=== PATIENT | female | born 1960 | race Two or more races ===

== ENCOUNTER 2016-07-11 03:17 | Emergency (ER) | payer MEDICAID, OTHER ==
[~2016-07-11] VITALS: Ht 152.4 cm; Wt 68.0 kg
[2016-07-11 04:08] LABS: Basophils # (auto) 0 uL; Basophils % (auto) 0.4 % (0.0-2.0); DEFINITIVE VIEW TRANSMISSION; Eosinophils # (auto) 0.1 uL; Hematocrit 35.4 % (36.0-46.0); Lymphocytes % (auto) 24.3 % (10.0-50.0); Mean Corpuscular Hemoglobin 26.9 pg (28.0-32.0); Mean Corpuscular Hgb Conc. 31.2 g/dL (32.0-36.0); Mean Corpuscular Volume 86.1 fL (80.0-100.0); Mean Platelet Volume 8.1 fL (7.4-10.4); Monocytes # (auto) 0.7 uL; Monocytes % (auto) 8.4 % (0.0-12.0); Neutrophils # (auto) 5.4 uL; Neutrophils % (auto) 65.9 % (37.0-80.0); Platelet Count (auto) 294 10^3/uL (140-450); Red Cell Distribution Width 13.1 % (11.6-16.0); White Blood Cell 8.2 10^3/uL (4.4-10.8)
[2016-07-11 04:36] LABS: Albumin 3.3 g/dL (3.4-5.0); Anion Gap 6 (5-15); Aspartate Aminotransferase 18 U/L (15-37); BUN/Creatinine Ratio 30.8; Blood Urea Nitrogen 24 mg/dL (7-18); Calcium 8.4 mg/dL (8.5-10.1); Carbon Dioxide 27 mmol/L (21-32); Chloride 107 mmol/L (98-107); GFR African American 98 mL/min; GFR Non-African American 81 mL/min; Glucose 166 mg/dL (74-106); Potassium 3.7 mmol/L (3.5-5.1); Sodium 140 mmol/L (136-145)
[2016-07-11 04:41] LABS: Alkaline Phosphatase 100 U/L (45-117); Bilirubin, Total 0.2 mg/dL (0.2-1.0); Total Protein 7.9 g/dL (6.4-8.2)
[2016-07-11 07:01] VITALS: BP 146/69
[2016-07-11 08:24] LABS: Urine Bilirubin Negative (Negative); Urine Blood Negative /uL (Negative); Urine Color Yellow (Yellow); Urine Ketone Negative (Negative); Urine Nitrite Negative (Negative); Urine RBC 2 /hpf (0 - 4); Urine Squamous Epithelial Cell FEW /hpf (<5); Urine Urobilinogen Normal (Negative); Urine pH 5.5 (5.0-8.0)
[2016-07-11 08:34] LABS: Urine Glucose 3+ mg/dL (Normal)
== END 2016-07-11 08:14 | disposition home or self-care (01) ==
LOC: ER 03:17 → EDBD 03:17 → ER 08:14
DX: E11.9 Type 2 diabetes mellitus without complications (principal); Z79.4 Long term (current) use of insulin
CPT/HCPCS: 36415; 80053; 81001; 82962; 84484; 85025; 93005

== ENCOUNTER → 2016-08-21 | Outpatient (CLI) | payer MEDICAID ==
[~2016-08-21] VITALS: Ht 157.5 cm; Wt 76.2 kg
[~2016-08-21] MED LIST: ADENOSINE IV ONE; GIVE UN DILUTED IV ONE
== END ==
LOC: HDHVI->DVH 14:17
PROVIDERS: ATTEND Internal Medicine Cardiovascular Disease
DX: I10 Essential (primary) hypertension (principal); I25.2 Old myocardial infarction; I25.10 Atherosclerotic heart disease of native coronary artery without angina pectoris; E78.00 Pure hypercholesterolemia, unspecified; E00.9 Congenital iodine-deficiency syndrome, unspecified; R07.9 Chest pain, unspecified
CPT/HCPCS: 78452; 93005; 93306; 96374; 96375; A9500; J0153

== ENCOUNTER → 2017-10-23 | Outpatient (CLI) | payer MEDICAID | END | disposition home or self-care (01) | LOC: Rad HDHVI 13:12 | PROVIDERS: ATTEND Internal Medicine Cardiovascular Disease | DX: I10 Essential (primary) hypertension (principal); E78.5 Hyperlipidemia, unspecified; R07.89 Other chest pain | CPT/HCPCS: 93306 ==

== ENCOUNTER → 2017-11-05 | Outpatient (CLI) | payer MEDICAID ==
[~2017-11-05] VITALS: Ht 154.9 cm; Wt 73.0 kg
[~2017-11-05] MED LIST changes: +ADENOSINE 61 MG in GIVE UN-DILUTED 0 ML IV ONE; +ADENOSINE 90 MG/30 ML INJ IV ONE; -ADENOSINE IV ONE; -GIVE UN DILUTED IV ONE
== END | disposition home or self-care (01) ==
LOC: Rad HDHVI 08:43
PROVIDERS: ATTEND Internal Medicine
DX: E11.9 Type 2 diabetes mellitus without complications (principal); E78.5 Hyperlipidemia, unspecified; I10 Essential (primary) hypertension; R63.8 Other symptoms and signs concerning food and fluid intake; R07.89 Other chest pain
CPT/HCPCS: 78452; 93005; 96374; 96375; A9500; J0153

== ENCOUNTER 2022-04-15 07:34 | Emergency (ER) | payer MEDICAID ==
[~2022-04-15] VITALS: Ht 154.9 cm; Wt 66.9 kg
[2022-04-15] MEDS ORDERED: ONDA-144 PO (09:40)
[2022-04-15] MEDS ORDERED: HYDR-4902 PO (09:40)
[2022-04-15 09:43] VITALS: BP 111/71
== END 2022-04-15 09:48 | disposition home or self-care (01) ==
LOC: ER 07:34
DX: R07.81 Pleurodynia (principal); E11.9 Type 2 diabetes mellitus without complications; E78.5 Hyperlipidemia, unspecified; I10 Essential (primary) hypertension; I25.2 Old myocardial infarction; Z90.49 Acquired absence of other specified parts of digestive tract
CPT/HCPCS: 71101

== ENCOUNTER 2023-02-09 09:29 | Emergency (ER) | payer MEDICARE, MEDICAID ==
[~2023-02-09] VITALS: Ht 152.4 cm; Wt 68.4 kg
[~2023-02-09 09:29] MED LIST changes: +ACET-1080 PO; -ADENOSINE 61 MG in GIVE UN-DILUTED 0 ML IV ONE; -ADENOSINE 90 MG/30 ML INJ IV ONE; +HYDR-4902 PO; +ONDA-144 PO
[2023-02-09 11:00] VITALS: BP 162/72; PULSE 89; RESP 24; TEMP 98.1; O2SAT 100
[2023-02-09] MEDS ORDERED: HYDROcodone-ACET 5/325MG TAB PO ONE (12:00)
== END 2023-02-09 12:36 | disposition home or self-care (01) ==
LOC: ER 09:29 → EDUNIT# 09:29 → EDBD 09:29 → ER 12:35
DX: R07.89 Other chest pain (principal); V89.2XXA Person injured in unspecified motor-vehicle accident, traffic, initial encounter; Y93.89 Activity, other specified; Y92.89 Other specified places as the place of occurrence of the external cause; Y99.8 Other external cause status
CPT/HCPCS: 71045; 93005

== ENCOUNTER 2023-02-26 15:11 | Inpatient (IN) | payer MEDICARE, MEDICAID ==
[~2023-02-26] VITALS: Ht 154.9 cm; Wt 66.7 kg
[2023-02-26 16:19] LABS: Basophils # (auto) 0.1 10 ^3/uL (0-0.2); Basophils % (auto) 0.8 % (0.0-2.0); Eosinophils # (auto) 0.1 10 ^3/uL (0-0.8); Eosinophils % (auto) 1.3 % (0.0-7.0); Hematocrit 33.2 % (36.0-46.0); Lymphocytes # (auto) 2.1 10 ^3/uL (0.4-5.4); Mean Corpuscular Hemoglobin 29.5 pg (28.0-32.0); Mean Corpuscular Hgb Conc. 33.3 g/dL (32.0-36.0); Mean Corpuscular Volume 88.7 fL (80.0-100.0); Monocytes # (auto) 0.5 10 ^3/uL (0-1.3); Neutrophils # (auto) 3.9 10 ^3/uL (1.6-8.6); Neutrophils % (auto) 58.9 % (37.0-80.0); Nucleated Red Blood Cells % 0.1 %; Red Blood Cells 3.74 10^6/uL (4.0-5.20); Red Cell Distribution Width 12.9 % (11.8-14.3); White Blood Cell 6.6 10^3/uL (4.4-10.8)
[2023-02-26 16:23] LABS: Alanine Aminotransferase 11 U/L (7-40); Albumin 4.2 g/dL (3.2-4.8); Alkaline Phosphatase 132 U/L (46-116); Anion Gap 6 (5-15); Aspartate Aminotransferase 14 U/L (13-40); BUN/Creatinine Ratio 18.5 (10.0-20.0); Blood Urea Nitrogen 38 mg/dL (9-23); Carbon Dioxide 23 mmol/L (20-30); Chloride 105 mmol/L (98-107); Glucose 359 mg/dL (74-106); Potassium 4.8 mmol/L (3.5-5.1); Sodium 134 mmol/L (136-145)
[2023-02-26 16:24] LABS: Bilirubin, Total 0.2 mg/dL (0.2-1.0); Total Protein 6.9 g/dL (5.7-8.2)
[2023-02-26] MEDS ORDERED: MORPHINE SULFATE INJ 2 MG/ml SYRG IV PRN ×2 (19:30)
[2023-02-26] MEDS ORDERED: DEXTROSE (50%) 50ML SYRG IV PRN (19:30)
[2023-02-26] MEDS ORDERED: NITROGLYCERIN 0.4 MG SL TAB SL PRN (19:30)
[2023-02-26] MEDS ORDERED: DOCUSATE SOD 100 MG CAP PO PRN (19:30)
[2023-02-26] MEDS ORDERED: HYDROcodone-ACET 5/325MG TAB PO PRN (19:30)
[2023-02-26 19:50] VITALS: O2SAT 97
[2023-02-26] MEDS ORDERED: RANO500T3 PO (19:54)
[2023-02-26] MEDS ORDERED: FERR325T20 PO (19:54)
[2023-02-26] MEDS ORDERED: EMPA1TAB PO (19:54)
[2023-02-26] MEDS ORDERED: ATOR40TA52 PO (19:54)
[2023-02-26] MEDS ORDERED: CLOP75TA70 PO (19:54)
[2023-02-26] MEDS: SODIUM CHLORIDE 0.9% 1,000 ML IV SCH (20:16)
[2023-02-26] MEDS: ACETAMINOPHEN 325 MG TAB PO PRN (20:16)
[2023-02-26 20:56] LABS: Creatinine, Urine 77.81 mg/dL (30.0-125.0)
[2023-02-26 20:57] LABS: Urine Bacteria NONE SEEN /hpf (None Seen); Urine Blood Negative /uL (Negative); Urine Clarity Clear (Clear); Urine Color Colorless (Yellow); Urine Protein, UAD Negative (Negative); Urine Urobilinogen Normal (Negative); Urine WBC 1 /hpf (0 - 5)
[2023-02-26] MEDS ORDERED: hydrALAZINE HCL 20 MG/ML VL IV PRN (21:00)
[2023-02-26 21:19] LABS: Magnesium 2.1 mg/dL (1.6-2.6)
[2023-02-26] MEDS: ATORVASTATIN 20 MG TAB PO SCH (21:35)
[2023-02-26] MEDS: RANOLAZINE ER 500 MG TAB PO SCH (21:35)
[2023-02-26] MEDS: ACCU-CHEK COMFORT CURVE STRIP VI SCH (22:12)
[2023-02-26] MEDS: InsuLIN REG 1unit/0.01ml Soln (100units/ml) SC SCH (22:15)
[2023-02-26 23:39] VITALS: BP 159/64; PULSE 60; RESP 16; TEMP 97.6; O2SAT 96
[2023-02-27] VITALS (8 sets, daily range): BP systolic 124–139; BP diastolic 48–63; PULSE 58–69; RESP 18–22; TEMP 97.8–98.4; O2SAT 98–100
[2023-02-27] MEDS ORDERED: ATOR20TA50 PO (02:09)
[2023-02-27] MEDS ORDERED: CHOL20007 PO (02:19)
[2023-02-27] MEDS ORDERED: METF-372 PO (02:19)
[2023-02-27] MEDS: SODIUM CHLORIDE 0.9% 1,000 ML IV SCH ×4 (02:25→22:25)
[2023-02-27 05:08] LABS: Basophils # (auto) 0 10 ^3/uL (0-0.2); Basophils % (auto) 0.7 % (0.0-2.0); Eosinophils # (auto) 0.1 10 ^3/uL (0-0.8); Hematocrit 31.1 % (36.0-46.0); Hemoglobin 10.5 g/dL (12.2-16.2); Lymphocytes # (auto) 2.6 10 ^3/uL (0.4-5.4); Lymphocytes % (auto) 43.7 % (10.0-50.0); Mean Corpuscular Hemoglobin 29.9 pg (28.0-32.0); Mean Corpuscular Hgb Conc. 33.8 g/dL (32.0-36.0); Mean Corpuscular Volume 88.6 fL (80.0-100.0); Monocytes # (auto) 0.6 10 ^3/uL (0-1.3); Monocytes % (auto) 10.1 % (0.0-12.0); Neutrophils # (auto) 2.6 10 ^3/uL (1.6-8.6); Neutrophils % (auto) 43.5 % (37.0-80.0); Red Blood Cells 3.52 10^6/uL (4.0-5.20); Red Cell Distribution Width 12.9 % (11.8-14.3); White Blood Cell 5.9 10^3/uL (4.4-10.8)
[2023-02-27 05:22] LABS: Albumin 3.6 g/dL (3.2-4.8); Alkaline Phosphatase 100 U/L (46-116); Anion Gap 8 (5-15); Aspartate Aminotransferase 12 U/L (13-40); BUN/Creatinine Ratio 21.5 (10.0-20.0); Blood Urea Nitrogen 31 mg/dL (9-23); Calcium 8.8 mg/dL (8.5-10.1); Carbon Dioxide 23 mmol/L (20-30); Chloride 109 mmol/L (98-107); Cholesterol 162 mg/dL (< 200); Glucose 176 mg/dL (74-106); LDL Cholesterol 89 mg/dL (< 100); Potassium 4.3 mmol/L (3.5-5.1); Sodium 140 mmol/L (136-145); Triglycerides 206 mg/dL (< 150)
[2023-02-27 05:23] LABS: Bilirubin, Total 0.4 mg/dL (0.2-1.0); HDL Cholesterol 38 mg/dL (40-59); Total Protein 6.1 g/dL (5.7-8.2)
[2023-02-27 05:28] LABS: Alanine Aminotransferase < 9 U/L (7-40)
[2023-02-27] MEDS: InsuLIN REG 1unit/0.01ml Soln (100units/ml) SC SCH ×4 (06:22→22:27)
[2023-02-27] MEDS: ACCU-CHEK COMFORT CURVE STRIP VI SCH ×4 (06:25→22:22)
[2023-02-27] MEDS: EMPAGLIFLOZIN 10 MG TAB PO SCH (09:55)
[2023-02-27] MEDS: RANOLAZINE ER 500 MG TAB PO SCH ×2 (09:55→21:27)
[2023-02-27] MEDS: CLOPIDOGREL BISULFATE 75 MG TAB PO SCH (09:55)
[2023-02-27] MEDS: amLODIPine BESYLATE 5 MG TAB PO SCH (09:55)
[2023-02-27] MEDS: VALSARTAN 80 MG TAB PO SCH (09:55)
[2023-02-27] MEDS: HCTZ 25 MG TAB PO SCH (09:56)
[2023-02-27] MEDS: FERROUS SULFATE 325mg EC TAB PO SCH (09:56)
[2023-02-27] MEDS: ACETAMINOPHEN 325 MG TAB PO PRN (21:27)
[2023-02-27] MEDS: ATORVASTATIN 20 MG TAB PO SCH (21:27)
[2023-02-28 05:00] VITALS: BP 135/39; PULSE 62; RESP 20; TEMP 97.9; O2SAT 98
[2023-02-28] MEDS: ACCU-CHEK COMFORT CURVE STRIP VI SCH ×2 (06:14→11:54)
[2023-02-28] MEDS: InsuLIN REG 1unit/0.01ml Soln (100units/ml) SC SCH ×2 (06:17→11:59)
[2023-02-28 08:00] VITALS: BP 127/53; PULSE 57; PULSE 61; RESP 18; TEMP 97.9; O2SAT 96
[2023-02-28 09:00] VITALS: BP 127/53; PULSE 61; RESP 18; TEMP 97.9; O2SAT 96
[2023-02-28] MEDS: HCTZ 25 MG TAB PO SCH (09:53)
[2023-02-28] MEDS: amLODIPine BESYLATE 5 MG TAB PO SCH (09:53)
[2023-02-28] MEDS: CLOPIDOGREL BISULFATE 75 MG TAB PO SCH (09:53)
[2023-02-28] MEDS: EMPAGLIFLOZIN 10 MG TAB PO SCH (09:53)
[2023-02-28] MEDS: VALSARTAN 80 MG TAB PO SCH (09:53)
[2023-02-28] MEDS: FERROUS SULFATE 325mg EC TAB PO SCH (09:53)
[2023-02-28] MEDS: ACETAMINOPHEN 325 MG TAB PO PRN (09:54)
[2023-02-28] MEDS: RANOLAZINE ER 500 MG TAB PO SCH (09:54)
[2023-02-28 11:09] VITALS: BP 127/53; PULSE 61; RESP 18; TEMP 97.9; O2SAT 96
[2023-02-28] MEDS: SODIUM CHLORIDE 0.9% 1,000 ML IV SCH ×2 (11:45)
== END 2023-02-28 13:00 | disposition home or self-care (01) | DRG 302 ==
LOC: ER 15:11 → TELE 19:32 → TELE-WESTW 22:25
PROVIDERS: ADMIT Nurse Practitioner Family; ATTEND Family Medicine
DX: I25.10 Atherosclerotic heart disease of native coronary artery without angina pectoris (principal); N17.0 Acute kidney failure with tubular necrosis; I50.32 Chronic diastolic (congestive) heart failure; M54.50 Low back pain, unspecified; E11.65 Type 2 diabetes mellitus with hyperglycemia; F41.9 Anxiety disorder, unspecified; E66.9 Obesity, unspecified; R94.31 Abnormal electrocardiogram [ECG] [EKG]; E78.00 Pure hypercholesterolemia, unspecified; I11.0 Hypertensive heart disease with heart failure; Z83.3 Family history of diabetes mellitus; Z90.49 Acquired absence of other specified parts of digestive tract; Z95.5 Presence of coronary angioplasty implant and graft; Z68.28 Body mass index [BMI] 28.0-28.9, adult
CPT/HCPCS: 36415; 71045; 71250; 74176; 76775; 78582; 80053; 80061; 81001; 82570; 82962; 83036; 83735; 83880; 84100; 84300; 84443; 84484; 85025; 85379; 93005; 96360; G0378; J1815

== ENCOUNTER 2023-12-10 13:36 | Inpatient (IN) | payer MEDICARE, MEDICAID ==
[~2023-12-10] VITALS: Ht 154.9 cm; Wt 67.7 kg
[~2023-12-10 13:36] MED LIST changes: +ASPI1TAB20 PO; +ATOR20TA PO; +ATOR20TA50 PO; +CHOL20007 PO; +CLOP75TA70 PO; +CYCL-837 PO; +DEX4T PO; +DULA0.5I SC; +EMPA1TAB PO; +FERR325T20 PO; +GLIM2TAB94 PO; +LEVO500T31 PO; +METF-372 PO; +PANT40T PO; +PIOG1TAB51 PO; +RANO500T3 PO
[2023-12-10 14:13] LABS: Basophils # (auto) 0 10 ^3/uL (0-0.2); Basophils % (auto) 0.5 % (0.0-2.0); Eosinophils # (auto) 0.1 10 ^3/uL (0-0.8); Eosinophils % (auto) 1.6 % (0.0-7.0); Hemoglobin 12.3 g/dL (12.2-16.2); Lymphocytes # (auto) 2.5 10 ^3/uL (0.4-5.4); Lymphocytes % (auto) 36.7 % (10.0-50.0); Mean Corpuscular Hemoglobin 30.1 pg (28.0-32.0); Mean Corpuscular Hgb Conc. 34.2 g/dL (32.0-36.0); Mean Corpuscular Volume 87.9 fL (80.0-100.0); Monocytes # (auto) 0.6 10 ^3/uL (0-1.3); Monocytes % (auto) 8.5 % (0.0-12.0); Neutrophils # (auto) 3.6 10 ^3/uL (1.6-8.6); Neutrophils % (auto) 52.7 % (37.0-80.0); Nucleated Red Blood Cells % 0.1 %; Red Cell Distribution Width 12.9 % (11.8-14.3); White Blood Cell 6.8 10^3/uL (4.4-10.8)
[2023-12-10 14:38] LABS: Alanine Aminotransferase 13 U/L (7-40); Albumin 4.5 g/dL (3.2-4.8); Alkaline Phosphatase 107 U/L (46-116); Anion Gap 9 (5-15); Aspartate Aminotransferase 12 U/L (13-40); BUN/Creatinine Ratio 29.3 (10.0-20.0); Blood Urea Nitrogen 41 mg/dL (9-23); Calcium 9.9 mg/dL (8.7-10.4); Carbon Dioxide 22 mmol/L (20-30); Chloride 106 mmol/L (98-107); Glucose 95 mg/dL (74-106); Potassium 4.6 mmol/L (3.5-5.1); Sodium 137 mmol/L (136-145)
[2023-12-10 14:39] LABS: Bilirubin, Total 0.6 mg/dL (0.2-1.0); Total Protein 7.1 g/dL (5.7-8.2)
[2023-12-10] MEDS: ASPirin 81 mg TAB PO ONE (15:07)
[2023-12-10 15:17] VITALS: RESP 18; O2SAT 100
[2023-12-10] MEDS ORDERED: ONDANSETRON PO PRN (17:00)
[2023-12-10] MEDS ORDERED: ACETAMINOPHEN 325 MG TAB PO PRN (17:15)
[2023-12-10] MEDS ORDERED: DOCUSATE SOD 100 MG CAP PO PRN (17:15)
[2023-12-10] MEDS ORDERED: MORPHINE SULFATE INJ 2 MG/ml SYRG IV PRN (17:15)
[2023-12-10] MEDS ORDERED: HYDROcodone-ACET 5/325MG TAB PO PRN (17:15)
[2023-12-10] MEDS ORDERED: NITROGLYCERIN 0.4 MG SL TAB SL PRN (17:15)
[2023-12-10] MEDS ORDERED: ONDANSETRON HCL 4 MG/2 ML VIAL IV PRN (17:15)
[2023-12-10 20:00] VITALS: PULSE 68; RESP 16; O2SAT 98
[2023-12-10] MEDS: CYCLOBENZAPRINE HCL 5 MG PO SCH (22:00)
[2023-12-10] MEDS: RANOLAZINE ER 500 MG TAB PO SCH (23:58)
[2023-12-10] MEDS: SODIUM CHLOR 0.9% PF (SALINE LOCK) 10ML VIAL/SYR IV SCH (23:59)
[2023-12-11] VITALS (8 sets, daily range): BP systolic 108–146; BP diastolic 52–62; PULSE 56–69; RESP 16–20; TEMP 97.6–98.6; O2SAT 96–100
[2023-12-11] MEDS: ASPirin-EC 81 mg tab PO SCH (10:51)
[2023-12-11] MEDS: CLOPIDOGREL BISULFATE 75 MG TAB PO SCH (10:52)
[2023-12-11] MEDS: ENOXAPARIN SOD 40 MG/0.4 ML SYRINGE SC SCH (10:52)
[2023-12-11] MEDS: PANTOPRAZOLE 40 MG TAB PO SCH (10:52)
[2023-12-11] MEDS: EMPAGLIFLOZIN 10 MG TAB PO SCH (10:52)
[2023-12-11] MEDS: FERROUS SULFATE 325mg EC TAB PO SCH (11:15)
[2023-12-11] MEDS: CHOLECALCIFEROL (VITD3) 1,000UNIT=25mCg TAB PO SCH (11:16)
[2023-12-11 12:25] LABS: Basophils # (auto) 0 10 ^3/uL (0-0.2); Basophils % (auto) 0.5 % (0.0-2.0); Chloride 105 mmol/L (98-107); Eosinophils # (auto) 0.1 10 ^3/uL (0-0.8); Eosinophils % (auto) 1.4 % (0.0-7.0); Hematocrit 38.1 % (36.0-46.0); Lymphocytes # (auto) 2.5 10 ^3/uL (0.4-5.4); Lymphocytes % (auto) 40.4 % (10.0-50.0); Mean Corpuscular Hemoglobin 29.8 pg (28.0-32.0); Mean Corpuscular Volume 87.8 fL (80.0-100.0); Monocytes # (auto) 0.6 10 ^3/uL (0-1.3); Monocytes % (auto) 9.7 % (0.0-12.0); Nucleated Red Blood Cells % 0.1 %; Potassium 4.3 mmol/L (3.5-5.1); Red Blood Cells 4.35 10^6/uL (4.0-5.20); Red Cell Distribution Width 12.8 % (11.8-14.3); Sodium 138 mmol/L (136-145); White Blood Cell 6.2 10^3/uL (4.4-10.8)
[2023-12-11 12:26] LABS: Anion Gap 7 (5-15); Carbon Dioxide 26 mmol/L (20-30)
[2023-12-11 12:27] LABS: Calcium 9.8 mg/dL (8.7-10.4)
[2023-12-11 12:31] LABS: BUN/Creatinine Ratio 20.6 (10.0-20.0); Glucose 137 mg/dL (74-106)
[2023-12-11 12:33] LABS: Blood Urea Nitrogen 26 mg/dL (9-23)
[2023-12-11 12:37] LABS: INR 1.03 (0.9-1.15); Partial Thromboplastin Time 28.8 SEC (24.5-34.5); Prothrombin Time 10.9 sec (9.3-11.8)
[2023-12-11] MEDS ORDERED: SODI650T PO (14:49)
[2023-12-11] MEDS: ATORVASTATIN 20 MG TAB PO SCH (21:08)
[2023-12-12] VITALS (7 sets, daily range): BP systolic 129–149; BP diastolic 46–75; PULSE 55–76; RESP 16–18; TEMP 97.8–98.5; O2SAT 97–99
[2023-12-12 05:53] LABS: Basophils # (auto) 0.1 10 ^3/uL (0-0.2); Basophils % (auto) 0.7 % (0.0-2.0); Eosinophils # (auto) 0.1 10 ^3/uL (0-0.8); Eosinophils % (auto) 1.3 % (0.0-7.0); Hematocrit 36.9 % (36.0-46.0); Hemoglobin 12.5 g/dL (12.2-16.2); Lymphocytes # (auto) 2.4 10 ^3/uL (0.4-5.4); Lymphocytes % (auto) 32.6 % (10.0-50.0); Mean Corpuscular Hemoglobin 29.7 pg (28.0-32.0); Mean Corpuscular Hgb Conc. 33.9 g/dL (32.0-36.0); Mean Corpuscular Volume 87.6 fL (80.0-100.0); Monocytes # (auto) 0.8 10 ^3/uL (0-1.3); Monocytes % (auto) 10.9 % (0.0-12.0); Neutrophils % (auto) 54.5 % (37.0-80.0); Nucleated Red Blood Cells % 0.1 %; Red Blood Cells 4.21 10^6/uL (4.0-5.20); Red Cell Distribution Width 12.7 % (11.8-14.3); White Blood Cell 7.3 10^3/uL (4.4-10.8)
[2023-12-12 06:04] LABS: Chloride 106 mmol/L (98-107); Potassium 4.3 mmol/L (3.5-5.1); Sodium 137 mmol/L (136-145)
[2023-12-12 06:05] LABS: Anion Gap 8 (5-15); Calcium 9.8 mg/dL (8.7-10.4); Carbon Dioxide 23 mmol/L (20-30)
[2023-12-12 06:10] LABS: Glucose 159 mg/dL (74-106)
[2023-12-12 06:11] LABS: BUN/Creatinine Ratio 22.8 (10.0-20.0); Blood Urea Nitrogen 33 mg/dL (9-23)
[2023-12-13] MEDS ORDERED: ENOXAPARIN SOD 30 MG/0.3 ML SYRINGE SC SCH (10:00)
== END 2023-12-12 20:43 | disposition left against medical advice (07) | DRG 311 ==
LOC: ER 13:36 → TELE 17:12 → TELE-WESTW 22:36
PROVIDERS: ADMIT Internal Medicine Geriatric Medicine; ATTEND Internal Medicine Geriatric Medicine
DX: I24.9 Acute ischemic heart disease, unspecified (principal); E78.5 Hyperlipidemia, unspecified; F41.9 Anxiety disorder, unspecified; Z53.20 Procedure and treatment not carried out because of patient's decision for unspecified reasons; I12.9 Hypertensive chronic kidney disease with stage 1 through stage 4 chronic kidney disease, or unspecified chronic kidney disease; E11.22 Type 2 diabetes mellitus with diabetic chronic kidney disease; N18.30 Chronic kidney disease, stage 3 unspecified; I25.2 Old myocardial infarction; Z98.61 Coronary angioplasty status; Z90.49 Acquired absence of other specified parts of digestive tract; Z83.3 Family history of diabetes mellitus
CPT/HCPCS: 36415; 71045; 80048; 80053; 84484; 85025; 85610; 85730; 93005; 93306; G0378